=== PATIENT | female | born 1935 | race Caucasian/White ===

== ENCOUNTER 2017-09-29 10:45 | Emergency (ER) | payer OTHER, SELFPAY ==
[2017-08-19 03:00] VITALS: BMI 22.9
[2017-09-29 10:51] VITALS: BMI 24.0
[2017-09-29 11:07] VITALS: BP 112/61; PULSE 61; RESP 15; TEMP 36.3; O2SAT 100
--- NOTE | 2017-09-29 11:25 | DI.RAD.S_ITS ---
PROCEDURE: XR THORACIC SPINE 3V INDICATIONS: fall, injury,pain TECHNIQUE: 3 views of the thoracic spine were acquired. COMPARISON: [facility], CT, CT ABDOMEN PELVIS W CON, 08/18/2017, 23:20. [facility], CR, CHEST 2VW, 09/13/2014, 2:56 PM. FINDINGS: Bones: There is mild compression fracture of the superior endplate T9 that was not present in 2014. Unfortunately the CT abdomen and pelvis of 08/18/2017 did not include that level. Mild, chronic anterior wedging T11 and T12 is unchanged. Mild S-shaped curvature and moderate kyphosis is noted. No suspicious bony lesions. 12 pairs of ribs are noted, and appear intact where visualized. Soft tissues: No paravertebral stripe thickening. Numerous surgical clips are present in the right and left upper quadrants. Large left kidney stone again noted. IMPRESSION: 1. Mild compression fracture T9 may be acute. This could be further evaluated by MRI or CT imaging if indicated. 2. Kyphosis and mild scoliosis. Chronic anterior wedging T11 and T12. 3. Large left kidney stone unchanged. Dictated by: Delroy Pinedo M.D. on 09/29/2017 at 11:48 Approved by: Delroy Pinedo M.D. on 09/29/2017 at 11:54
--- NOTE | 2017-09-29 11:31 | ED.BACK ---
HPI - Back Pain/Injury General Chief Complaint: Back Pain/Injury Stated Complaint: FELL Time Seen by Provider: 09/29/17 10:51 Source: patient Mode of arrival: ambulatory Limitations: no limitations History of Present Illness HPI Narrative: 81-year-old female here for evaluation of mid back pain. Patient states that this morning she had a mechanical fall and hit her back on a piece of furniture in her room. She did not hit her head. No loss of consciousness. No problems breathing. She states since then she has had pain in the midback. She was concerned that she ?broke something ?so she came into the emergency department. Related Data Home Medications Medication Instructions Recorded Confirmed alprazolam 0.5 mg PO QAM PRN #0 12/06/09 08/19/17 imipramine HCl 50 mg PO QHS #0 12/06/09 08/19/17 levothyroxine 50 mcg PO DAILY #0 12/06/09 08/19/17 alprazolam 1 mg PO QPM PRN 08/19/17 08/19/17 cholestyramine-aspartame 1 scoop/day PO DAILY 08/19/17 08/19/17 [Cholestyramine Light] lisinopril-hydrochlorothiazide 1 tab PO DAILY 08/19/17 08/19/17 [Zestoretic] Previous Rx's Medication Instructions Recorded tramadol 50 mg PO Q6H PRN #20 tab 09/29/17 Allergies Allergy/AdvReac Type Severity Reaction Status Date / Time No Known Drug Allergies Allergy Verified 09/29/17 10:51 Review of Systems Constitutional Denies fever(s) ENT Ears, Nose, Mouth, and Throat: Denies vertigo and Denies dizziness Cardiovascular Denies chest pain, Denies palpitations and Denies dyspnea Respiratory Denies cough and Denies dyspnea Musculoskeletal Denies deformity and Denies tingling Comments: Midback midline pain Integumentary/Breasts Denies lesions, Denies rash and Denies wounds Neurologic Denies confusion, Denies vertigo, Denies dizziness, Denies tingling, Denies paresthesias and Denies tremor(s) Psychiatric Denies confusion Endocrine Denies palpitations Hematologic/Lymphatic Denies easy bleeding and Denies easy bruising FOR[facility]LY [facility], [facility] Medical History Anxiety (Acute) Dementia (Acute) Depressed (Acute) Heart palpitations (Acute) History of hysterectomy (Acute) Hypertension (Acute) Hypothyroid (Acute) Nephrolithiasis (Acute) Surgical History History of bladder suspension procedure (Acute) History of repair of hiatal hernia (Acute) Hx laparoscopic cholecystectomy (Acute) Social History household members: spouse Smoking Status: Never smoker Exam Initial Vital Signs Initial Vital Signs: Vital Signs Temperature 97.4 F L 09/29/17 11:07 Pulse Rate 61 09/29/17 11:07 Respiratory Rate 15 09/29/17 11:07 Blood Pressure 112/61 09/29/17 11:07 Pulse Oximetry 100 09/29/17 11:07 Const General: cooperative, healthy appearing, comfortable, well developed, well groomed and No acute distress Orientation: alert, awake and oriented x3 HENMT Head: normal to inspection, normocephalic and atraumatic Resp Effort & Inspection: normal respiratory effort Auscultation: clear to auscultation bilaterally Cardio Rate: regular rate Pulses: radial pulses present Back/Spine/Pelvis Back: No CVA tenderness Cervical Spine: No cervical muscular tenderness, No cervical spinal tenderness and No step off deformity Thoracic/Lumbar Spine: No paraspinal tenderness, No thoraco-lumbar spasm and thoracic spinal tenderness (Mid to lower thorax) Skin Lesions: no lesions Rashes: no rashes Neuro General: alert, awake and oriented x3 Cognition: normal cognition Speech: speech normal Gait: normal gait Motor: muscle tone normal throughout Sensory Exam: no sensory deficits noted Extrem General: normal to inspection and capillary refill normal Course Orders Ordered: ED Orders 09/29/17 11:25 XR thoracic spine 3V Stat Vital Signs - 8 hr 09/29/17 11:07 Temperature 97.4 F L Pulse Rate 61 Respiratory Rate 15 Blood Pressure [Left Arm] 112/61 Pulse Oximetry 100 MDM - Back Pain/Injury Imaging Data Thoracic spine x-ray: Radiologist's impression: PROCEDURE: XR THORACIC SPINE 3V INDICATIONS: fall, injury,pain TECHNIQUE: 3 views of the thoracic spine were acquired. COMPARISON: [facility], CT, CT ABDOMEN PELVIS W CON, 08/18/2017, 23:20. [facility], CR, CHEST 2VW, 09/13/2014, 2:56 PM. FINDINGS: Bones: There is mild compression fracture of the superior endplate T9 that was not present in 2014. Unfortunately the CT abdomen and pelvis of 08/18/2017 did not include that level. Mild, chronic anterior wedging T11 and T12 is unchanged. Mild S-shaped curvature and moderate kyphosis is noted. No suspicious bony lesions. 12 pairs of ribs are noted, and appear intact where visualized. Soft tissues: No paravertebral stripe thickening. Numerous surgical clips are present in the right and left upper quadrants. Large left kidney stone again noted. IMPRESSION: 1. Mild compression fracture T9 may be acute. This could be further evaluated by MRI or CT imaging if indicated. 2. Kyphosis and mild scoliosis. Chronic anterior wedging T11 and T12. 3. Large left kidney stone unchanged. Dictated by: Delroy Pinedo M.D. on 09/29/2017 at 11:48 MDM Narrative Medical decision making narrative: Patient with thoracic spine x-ray is concerning for a T9 compression fracture. This does correspond to the location of her pain on her back and I suspect that it is acute. She has no neurologic deficits. I did discuss this with the patient and her who is at bedside. Will send home with pain medication. She was instructed that she needed to contact her primary care doctor for a follow-up. She was given return precautions. She expressed understanding and agreement with plan Discharge Plan Departure Patient Disposition: Home, Self-Care Clinical Impression: Compression fracture of thoracic vertebra Instructions: DI for Vertebral Fracture Activity Restrictions/Additional Instructions: Continue all of your medications as instructed. Contact your primary care doctor for a follow-up in the next week. You can be as active as normal and are only limited by your discomfort. Return to the emergency department for any new or worsening symptoms Prescriptions: New tramadol 50 mg tablet 50 mg PO Q6H PRN (Reason: pain) Qty: 20 RF: 0 No Action alprazolam 0.5 mg Tablet 0.5 mg PO QAM PRN (Reason: Anxiety) Qty: 0 RF: 0 imipramine HCl 25 mg Tablet 50 mg PO QHS Qty: 0 RF: 0 levothyroxine 50 mcg Tablet 50 mcg PO DAILY Qty: 0 RF: 0 alprazolam 0.5 mg tablet 1 mg PO QPM PRN (Reason: Anxiety) RF: 0 lisinopril-hydrochlorothiazide [Zestoretic] 10-12.5 mg Tablet 1 tab PO DAILY RF: 0 cholestyramine-aspartame [Cholestyramine Light] 4 gram Powder 1 scoop/day PO DAILY RF: 0
[2017-09-29 12:16] VITALS: BP 111/63; PULSE 63; RESP 14; O2SAT 97
== END 2017-09-29 12:18 | disposition home or self-care (01) ==
PROVIDERS: Emergency Provider Emergency Medicine; Family Provider Family Medicine; PCP Family Medicine
DX: S22.000A Wedge compression fracture of unspecified thoracic vertebra, initial encounter for closed fracture (principal); W18.00XA Striking against unspecified object with subsequent fall, initial encounter
CPT/HCPCS: 72072; 99283

== ENCOUNTER 2017-09-30 14:59 | Emergency (ER) | payer OTHER, SELFPAY ==
[2017-08-19 03:00] VITALS: BMI 22.9
[2017-09-30 15:09] VITALS: BP 154/66; PULSE 97; RESP 19; TEMP 36.4; O2SAT 99; BMI 23.1
--- NOTE | 2017-09-30 15:18 | DI.RAD.S_ITS ---
PROCEDURE: XR CHEST 1V INDICATIONS: chest pain TECHNIQUE: One view of the chest was acquired. COMPARISON: [facility], CR, XR CHEST 1V, 08/18/2017, 23:11. FINDINGS: Surgical changes and devices: Present overlying the upper. Lungs and pleura: Mild increased pulmonary vascularity. Trace effusions, left greater than right. Mediastinum: Mediastinal contours appear normal. Heart size is normal. Bones and chest wall: No suspicious bony lesions. Overlying soft tissues appear unremarkable. IMPRESSION: Trace effusions with increased vascularity suggestive of edema. Dictated by: Raine Badillo M.D. on 09/30/2017 at 15:32 Approved by: Raine Badillo M.D. on 09/30/2017 at 15:33
[2017-09-30 15:25] LABS: Add Manual Diff / Slide Review NO; Basophils Percent Auto 0.9 % (0-2); Eosinophils Percent Auto 1.8 % (2-4); Hematocrit 40.5 % (36-46); Hemoglobin 13.5 g/dL (12.0-16.0); Lymphocytes Percent Auto 16.3 % (25-40); Mean Corpuscular HGB Conc 33.4 % (30-36); Mean Corpuscular Hemoglobin 27.8 PG (26-34); Mean Corpuscular Volume 83.2 fL (80-100); Monocytes Percent Auto 5.1 % (3-14); Neutrophils Absolute Auto 7300 /uL (3000-5900); Neutrophils Percent Auto 75.9 % (50-75); Platelet Count 215 X10^3/uL (150-400); Red Blood Cell Count 4.87 X10^6/uL (4.0-5.2); Red Cell Distribution Width 13.8 % (11.6-14.8); White Blood Cell Count 9.6 X10^3/uL (4.5-11.0)
[2017-09-30 15:28] LABS: INR 1.1 (0.9-1.3); Prothrombin Time 11.7 SECONDS (10.1-12.7)
[2017-09-30 15:31] LABS: PTT Partial Thromboplastin Tim 30 SECONDS (26.4-36.2)
[2017-09-30 15:35] LABS: Alanine Aminotransferase 33 IU/L (9-52); Albumin 4.9 g/dL (3.5-5.0); Albumin Globulin Ratio 1.4 (1.0-2.8); Alkaline Phosphatase 89 U/L (38-126); Aspartate Aminotransferase 31 IU/L (14-36); Bilirubin Total 0.5 mg/dL (0.2-1.3); Blood Urea Nitrogen 17 mg/dL (7-17); Calcium 9.9 mg/dL (8.4-10.2); Carbon Dioxide 27 mmol/L (22-32); Chloride 99 mmol/L (98-107); Creatine Kinase 69 U/L (30-135); Estimated Glomerular Filt Rate 53.5 mL/min (>60); Globulin 3.6 g/dL (1.7-4.1); Glucose 117 mg/dL (80-110); HEMOLYSIS < 15 (0-50); Lipase 107 U/L (23-300); Potassium 3.6 mmol/L (3.4-5.1); Sodium 140 mmol/L (137-145); Total Protein 8.5 g/dL (6.3-8.2)
--- NOTE | 2017-09-30 15:43 | ED.CHESTPAIN ---
HPI - Chest Pain General Chief Complaint: Chest Pain Stated Complaint: CHEST PAIN Time Seen by Provider: 09/30/17 15:02 Source: patient Mode of arrival: ambulatory Limitations: no limitations History of Present Illness HPI narrative: Patient is a 81-year-old female who presents with chest pain. She was seen evaluated here yesterday and diagnosed with a T9 compression fracture. She says she went home and since then she has been having and chest discomfort. Her pain is constant and non radiating. The son was able to lay down today and close her eyes of she said she did not sleep. She actually was admitted to [facility] of she says for a number of weeks with a non ST elevated [place]. She was transferred there after a rising troponin level. She did not have pain at the time Related Data Home Medications Medication Instructions Recorded Confirmed alprazolam 0.5 mg PO QAM PRN #0 12/06/09 09/29/17 imipramine HCl 50 mg PO QHS #0 12/06/09 09/29/17 levothyroxine 25 mcg PO DAILY #0 12/06/09 09/29/17 alprazolam 1 mg PO QPM PRN 08/19/17 09/29/17 cholestyramine-aspartame 1 scoop/day PO DAILY 08/19/17 09/29/17 [Cholestyramine Light] lisinopril-hydrochlorothiazide 1 tab PO DAILY 08/19/17 09/29/17 [Zestoretic] aspirin 81 mg PO DAILY 09/29/17 09/29/17 metoprolol succinate 50 mg PO BID 09/29/17 09/29/17 Previous Rx's Medication Instructions Recorded tramadol 50 mg PO Q6H PRN #20 tab 09/29/17 Allergies Allergy/AdvReac Type Severity Reaction Status Date / Time No Known Drug Allergies Allergy Verified 09/29/17 10:51 Review of Systems Review of Systems All systems reviewed & are unremarkable except as noted in HPI and below Constitutional Denies chills, Denies fever(s), Denies lethargy and Denies weakness Cardiovascular Reports as per HPI, Denies dyspnea and Denies dyspnea on exertion Respiratory Denies cough, Denies dyspnea, Denies dyspnea on exertion and Denies wheezing Gastrointestinal Gastrointestinal: Denies abdominal pain, Denies change in bowel habits, Denies diarrhea, Denies nausea and Denies vomiting Musculoskeletal Reports system reviewed and no additional complaints, except as docu and Reports as per HPI Integumentary/Breasts Denies pruritus, Denies erythema, Denies rash and Denies wounds Neurologic Denies as per HPI and Denies weakness Allergic/Immunologic Denies wheezing PFSH Medical History Anxiety (Acute) Dementia (Acute) Depressed (Acute) Heart palpitations (Acute) History of hysterectomy (Acute) Hypertension (Acute) Hypothyroid (Acute) Nephrolithiasis (Acute) Takotsubo cardiomyopathy (Acute) Surgical History History of bladder suspension procedure (Acute) History of repair of hiatal hernia (Acute) Hx laparoscopic cholecystectomy (Acute) Social History household members: spouse Smoking Status: Never smoker Exam Initial Vital Signs Initial Vital Signs: Vital Signs Temperature 97.5 F L 09/30/17 15:09 Pulse Rate 97 H 09/30/17 15:09 Respiratory Rate 19 09/30/17 15:09 Blood Pressure 154/66 H 09/30/17 15:09 Pulse Oximetry 99 09/30/17 15:09 Const General: cooperative and well developed Nutritional Appearance: well nourished Orientation: alert, awake, oriented x3 and not confused Chest Chest: normal inspection of the chest and normal palpation of entire chest wall Other: Pain is not reproducible with palpation Resp Effort & Inspection: normal respiratory effort, able to speak in complete sentences, no respiratory distress and no use of accessory muscles Auscultation: clear to auscultation bilaterally, no rales, no rhonchi and no wheezes Cardio Rate: regular rate Rhythm: regular rhythm Heart Sounds: no click, no gallops, no murmurs and no rubs Pulses: normal peripheral pulses Back/Spine/Pelvis Back: No CVA tenderness Cervical Spine: cervical ROM normal and No pain with cervical ROM Thoracic/Lumbar Spine: thoracic and lumbar spine normal to inspection Skin General: no rashes or lesions noted, No jaundice and No petechiae Course Orders Ordered: ED Orders 09/30/17 15:08 Complete Blood Count AUTO DIFF Stat Comprehensive Metabolic Panel Stat Lipase Stat Partial Thromboplastin Time Stat Prothrombin Time INR Stat Troponin with CK Cardiac Panel Stat 09/30/17 15:18 XR chest 1V Stat EKG-12 Lead Stat 09/30/17 17:24 Troponin I Stat Discontinued Medications Ondansetron HCl (Zofran) 4 mg IV NOW ONE Stop: 09/30/17 16:59 Last Admin: 09/30/17 17:01 Dose: 4 mg Vital Signs - 8 hr 09/30/17 15:09 09/30/17 16:11 09/30/17 16:34 Temperature 97.5 F L Pulse Rate 97 H 76 85 Respiratory Rate 19 16 23 Blood Pressure 154/66 H Blood Pressure [Left Arm] 110/55 L 121/63 H Pulse Oximetry 99 99 96 09/30/17 17:44 Temperature Pulse Rate 66 Respiratory Rate 18 Blood Pressure Blood Pressure [Left Arm] 111/56 L Pulse Oximetry 96 MDM - Chest Pain Lab Data Attestation: I reviewed the patient's lab results. Result diagrams: 09/30/17 15:08 09/30/17 15:08 Lab Results 09/30/17 09/30/17 09/30/17 Range/Units 15:08 15:08 15:08 WBC 9.6 (4.5-11.0) X10^3/uL RBC 4.87 (4.0-5.2) X10^6/uL Hgb 13.5 (12.0-16.0) g/dL Hct 40.5 (36-46) % MCV 83.2 (80-100) fL MCH 27.8 (26-34) PG MCHC 33.4 (30-36) % RDW 13.8 (11.6-14.8) % Plt Count 215 (150-400) X10^3/uL Neut % (Auto) 75.9 H (50-75) % Lymph % (Auto) 16.3 L (25-40) % [place] % (Auto) 5.1 (3-14) % Eos % (Auto) 1.8 L (2-4) % Baso % (Auto) 0.9 (0-2) % Neut # (Auto) 7300 H (2393-6389) /uL PT 11.7 (10.1-12.7) SECONDS INR 1.1 (0.9-1.3) APTT 30 (26.4-36.2) SECONDS Sodium 140 (137-145) mmol/L Potassium 3.6 (3.4-5.1) mmol/L Chloride 99 (98-107) mmol/L Carbon Dioxide 27 (22-32) mmol/L BUN 17 (7-17) mg/dL Creatinine 1.00 (0.52-1.04) mg/dL Estimated GFR 53.5 L (>60) mL/min BUN/Creatinine Ratio 17.0 (6-22) Glucose 117 H (80-110) mg/dL Calcium 9.9 (8.4-10.2) mg/dL Total Bilirubin 0.5 (0.2-1.3) mg/dL AST 31 (14-36) IU/L ALT 33 (9-52) IU/L Alkaline Phosphatase 89 (38-126) U/L Total Creatine Kinase 69 (30-135) U/L Troponin I < 0.012 (0.01-0.034) ng/mL Total Protein 8.5 H (6.3-8.2) g/dL Albumin 4.9 (3.5-5.0) g/dL Globulin 3.6 (1.7-4.1) g/dL Albumin/Globulin Ratio 1.4 (1.0-2.8) Lipase 107 (23-300) U/L // Range/Units 17:24 WBC (4.5-11.0) X10^3/uL RBC (4.0-5.2) X10^6/uL Hgb (12.0-16.0) g/dL Hct (36-46) % MCV (80-100) fL MCH (26-34) PG MCHC (30-36) % RDW (11.6-14.8) % Plt Count (150-400) X10^3/uL Neut % (Auto) (50-75) % Lymph % (Auto) (25-40) % [place] % (Auto) (3-14) % Eos % (Auto) (2-4) % Baso % (Auto) (0-2) % Neut # (Auto) (3054-1046) /uL PT (10.1-12.7) SECONDS INR (0.9-1.3) APTT (26.4-36.2) SECONDS Sodium (137-145) mmol/L Potassium (3.4-5.1) mmol/L Chloride (98-107) mmol/L Carbon Dioxide (22-32) mmol/L BUN (7-17) mg/dL Creatinine (0.52-1.04) mg/dL Estimated GFR (>60) mL/min BUN/Creatinine Ratio (6-22) Glucose (80-110) mg/dL Calcium (8.4-10.2) mg/dL Total Bilirubin (0.2-1.3) mg/dL AST (14-36) IU/L ALT (9-52) IU/L Alkaline Phosphatase (38-126) U/L Total Creatine Kinase (30-135) U/L Troponin I < 0.012 (0.01-0.034) ng/mL Total Protein (6.3-8.2) g/dL Albumin (3.5-5.0) g/dL Globulin (1.7-4.1) g/dL Albumin/Globulin Ratio (1.0-2.8) Lipase (23-300) U/L Imaging Data Chest x-ray: Radiologist's impression: PROCEDURE: XR CHEST 1V INDICATIONS: chest pain TECHNIQUE: One view of the chest was acquired. COMPARISON: [facility], , XR CHEST 1V, 08/18/2017, 23:11. FINDINGS: Surgical changes and devices: Present overlying the upper. Lungs and pleura: Mild increased pulmonary vascularity. Trace effusions, left greater than right. Mediastinum: Mediastinal contours appear normal. Heart size is normal. Bones and chest wall: No suspicious bony lesions. Overlying soft tissues appear unremarkable. IMPRESSION: Trace effusions with increased vascularity suggestive of edema. Dictated by: Raine Badlilo M.D. on 09/30/2017 at 15:32 ECG Data Attestation: I personally reviewed and interpreted this ECG as follows: Prior ECG tracings: available for review Interpretation: Sinus rhythm rate 78 artifact noted no acute ST changes similar to previous EKG MDM Narrative Medical decision making narrative: Patient has moved 2-troponins her chest pain has resolved completely. EKGs remained unremarkable. She is feeling better. She really just wanted make sure her heart was okay. Discharge Plan Departure Patient Disposition: Home, Self-Care Clinical Impression: Atypical chest pain Discharge Date/Time: 09/30/17 18:31 Interventions: ED Discharge Assessment Last Done: 09/30/17 18:31 Instructions: DI for Atypical Chest Pain Activity Restrictions/Additional Instructions: *You have been diagnosed with atypical chest pain *What to do: follow up with your pilates coordinator, call tomorrow to schedule follow up appointment *Continue to take medications as directed *Follow up with your primary care provider in 2-3 days *Return to ER if you should have any new, worsening or concerning symptoms Prescriptions: No Action alprazolam 0.5 mg Tablet 0.5 mg PO QAM PRN (Reason: Anxiety) Qty: 0 RF: 0 imipramine HCl 25 mg Tablet 50 mg PO QHS Qty: 0 RF: 0 levothyroxine 50 mcg Tablet 25 mcg PO DAILY Qty: 0 RF: 0 tramadol 50 mg tablet 50 mg PO Q6H PRN (Reason: pain) Qty: 20 RF: 0 metoprolol succinate 50 mg Tablet Extended Release 24 Hr 50 mg PO BID RF: 0 aspirin 81 mg Tablet,Delayed Release (Dr/Ec) 81 mg PO DAILY RF: 0 alprazolam 0.5 mg tablet 1 mg PO QPM PRN (Reason: Anxiety) RF: 0 lisinopril-hydrochlorothiazide [Zestoretic] 10-12.5 mg Tablet 1 tab PO DAILY RF: 0 cholestyramine-aspartame [Cholestyramine Light] 4 gram Powder 1 scoop/day PO DAILY RF: 0 Referrals: Jeremiah Aponte MD [Primary Care Provider] -
[2017-09-30 15:45] LABS: Troponin I < 0.012 ng/mL (0.01-0.034)
[2017-09-30 16:11] VITALS: BP 110/55; PULSE 76; RESP 16; O2SAT 99
[2017-09-30 16:34] VITALS: BP 121/63; PULSE 85; RESP 23; O2SAT 96
[2017-09-30] MEDS: ONDANSETRON 4 MG/2 ML INJ IV (17:01)
--- NOTE | 2017-09-30 17:02 | PC.NURSE ---
Pt suddenly became nauseated and diaphoretic. Dr Cain aware. Ordered 4mg zofran IV. Pt denies chest pain at this time.
[2017-09-30 17:44] VITALS: BP 111/56; PULSE 66; RESP 18; O2SAT 96
[2017-09-30 18:11] LABS: Troponin I < 0.012 ng/mL (0.01-0.034)
== END 2017-09-30 18:31 | disposition home or self-care (01) ==
PROVIDERS: Emergency Provider Emergency Medicine; Family Provider Family Medicine; PCP Family Medicine
DX: R07.89 Other chest pain (principal)
CPT/HCPCS: 36415; 36591; 71045; 80053; 82550; 82553; 83690; 84484; 85025; 85610; 85730; 93005; 93041; 96374; 99283; 99285; J2405

== ENCOUNTER → 2017-10-08 09:14 | Outpatient (CLI) | payer OTHER, SELFPAY ==
[2017-08-19 03:00] VITALS: BMI 22.9
--- NOTE | 2017-10-08 | DI.ECHO.S_ITS ---
[facility] +---------+ : : [address] [place] : : : : [id number] : : : : Phone: [phone] Echocardiogram Report + + :Name: RORY WING Study Date: 10/08/2017 Height: 65 in : :[facility] Exam Location: [facility] Weight: 135 lb : : Gender: Female BSA: 1.7 m2 : :: 1935 Age: 81 yrs BP: 135/95 mmHg: :Reason For Study: Takotsubo cardiomyopathy : :Ordering Physician: Chong : :Ilene Performed By: Radha Page : + + Interpretation Summary The patient extremely anxious through out the exam. 1) Normal left ventricular thickness, size, wall motion, and systolic function (EF 65-70%). 2) Normal right ventricular size and function. 3) No significant valvular abnormalities. 4) Compared to the Echo done 08/23/2017, LVEF has improved from 45-50% to 65- 70% (normal) today. Procedure: A two-dimensional transthoracic echocardiogram with color flow and Doppler was performed. The study quality was technically adequate. Comparison is made with the echocardiogram of 08/23/2017. The patient was in normal sinus rhythm during the exam. Left Ventricle: The left ventricle is normal in size. There is normal left ventricular wall thickness. The ejection fraction is estimated to be 65-70%. Left ventricular systolic function is normal without focal wall motion abnormalities. Assessment of diastolic parameters indicates a relaxation abnormality of the left ventricle, consistent with normal filling pressures. Right Ventricle: The right ventricle is normal in size, thickness and function. Atria: The left atrium is mildly dilated. The right atrium is normal in size. There is no Doppler evidence for an interatrial shunt. Mitral Valve: The mitral valve is normal in structure and function. There is mild mitral annular calcification. There is trace mitral regurgitation. Aortic Valve: The aortic valve is trileaflet. The aortic valve opens well. The aortic valve is slightly calcified. There is no aortic valve stenosis. No aortic regurgitation is present. Tricuspid Valve: The tricuspid valve is normal in structure and function. There is trace tricuspid regurgitation. The right ventricular systolic pressure is estimated at 24 mmHg assuming a right atrial pressure of 3 mm Hg. Pulmonic Valve: The pulmonic valve is not well visualized. There is no pulmonic valvular regurgitation. Great Vessels: The aortic root is normal size. The ascending aorta is normal in size. The aortic arch is normal in size. The pulmonary artery is normal size. The IVC is of normal diameter and collapses greater than 50% with a sniff. This suggests a low right atrial pressure of 3 mm Hg. Pericardium/ Pleura There is no pericardial effusion. There is no pleural effusion. MMode/2D Measurements & Calculations LVIDd: 4.6 cm LVOT diam: 2.1 cm LVIDs: 2.7 cm Ao root diam: 3.3 cm FS: 42.7 % asc Aorta Diam: 3.3 cm EPSS: 0.43 cm Ao Arch Diam (Prox Trans): 2.2 cm IVSd: 0.63 cm LVPWd: 0.69 cm LV meredith. diameter/BSA (cm/m^2): 2.8 LV sys. diameter/BSA (cm/m^2): 1.6 LA A2 area: 18.8 cm2 RA long axis: 4.3 cm LA A4 area: 17.5 cm2 RA area: 14.1 cm2 LA length (vol): 4.8 cm RA vol: 39.4 ml LA vol: 58.3 ml RA : 23.5 ml/m2 LA vol index: 34.8 ml/m2 Doppler Measurements & Calculations Ao V2 max: 114.9 cm/sec LVOT Max Gordon: 103.6 cm/sec Ao V2 mean: 77.4 cm/sec LV V1 max P.3 mmHg Ao max P.3 mmHg LV V1 VTI: 18.1 cm Ao mean P.8 mmHg RAMIREZ(I,D): 3.1 cm2 Ao V2 VTI: 19.5 cm RAMIREZ(V,D): 3.0 cm2 sev ratio: 0.93 RAMIREZ indexed to BSA (cm^2/m^2): 1.8 MV E max gordon: 62.8 cm/sec TR max gordon: 231.4 cm/sec MV A max gordon: 119.1 cm/sec TR max P.4 mmHg MV E/A: 0.53 PA V2 max: 83.7 cm/sec Med Peak E' Gordon: 4.9 cm/sec PA V2 mean: 56.8 cm/sec E/E' med: 12.9 PA mean P.5 mmHg Lat Peak E' Gordon: 6.3 cm/sec PA Accel Time: 0.10 sec E/E' lat: 10.0 E/e' average: 11.5 MV dec time: 0.11 sec Reading Physician:01:43 PM
== END ==
PROVIDERS: Family Provider Family Medicine; PCP Family Medicine; Visit Provider Physician Assistant
DX: I51.81 Takotsubo syndrome (principal)
CPT/HCPCS: 93306

== ENCOUNTER → 2017-12-08 13:52 | Outpatient (CLI) | payer OTHER, SELFPAY ==
[2017-08-19 03:00] VITALS: BMI 22.9
== END ==
PROVIDERS: PCP Family Medicine; Visit Provider Family Medicine
DX: E07.9 Disorder of thyroid, unspecified (principal); Z78.0 Asymptomatic menopausal state
CPT/HCPCS: 77080